=== PATIENT | female | born 1960 | race Caucasian/White ===

== ENCOUNTER 2020-03-13 15:10 | Emergency (ER) | payer OTHER, SELFPAY ==
[2020-03-13 15:33] VITALS: BP 135/76; PULSE 76; RESP 16; TEMP 36.3; O2SAT 98; BMI 28.5
[2020-03-13 17:14] VITALS: PULSE 70
--- NOTE | 2020-03-13 17:15 | PC.NURSE ---
Redness and warmth to dorsum of right hand. Light red, blanching. Movement of fingers limited by pain. + CSM distally. Has not tried po abx yet. Declined IM rocephin at [facility] r/t allergy to Amoxicillin. Pain well controlled. Denies fever / chills.
--- NOTE | 2020-03-13 18:14 | ED_ITS ---
HPI - Extremity Problem General Chief complaint: Extremity Problem,Nontraumatic Stated complaint: states right hand is infected Time Seen by Provider: 03/13/20 18:08 Source: patient Mode of arrival: Ambulatory Limitations: no limitations History of Present Illness HPI Narrative: 51-year-old female nonsmoker noncontributory medical history presents after being seen at a clinic out in the [facility] for evaluation of a possibly infected right hand. She had been wearing gloves and was working in her garden when she was poked on the dorsum of her hand with a thorn. She now has some redness limited to the dorsum of her right hand without any red streaking or systemic findings such as fever, chills nor nausea or vomiting. She is able to make a fist though it hurts. MD Complaint: extremity pain Onset (ago): day(s) Pain Consistency: constant Location: right Quality: aching Radiation: none Relieving factors: nothing Exacerbating factors: range of motion Associated symptoms: denies other symptoms Related Data Home Medications Medication Instructions Recorded Confirmed gabapentin 03/13/20 Previous Rx's Medication Instructions Recorded doxycycline hyclate 100 mg PO BID #20 tab 03/13/20 Allergies Allergy/AdvReac Type Severity Reaction Status Date / Time amoxicillin [From AUGMENTIN] Allergy Mild rash /hives Unverified 11/08/17 13:04 clavulanic acid Allergy Mild rash / Unverified 11/08/17 13:04 [From AUGMENTIN] hives Review of Systems Constitutional Constitutional: Denies chills, Denies fatigue, Denies fever(s), Denies frequent falls, Denies lethargy and Denies weakness Eyes Eyes: Denies change in vision, Denies eye discharge, Denies irritation and Denies loss of vision ENT Ears, Nose, Mouth, and Throat: Denies change in voice, Denies dizziness, Denies neck pain, Denies sore throat and Denies throat swelling Cardiovascular Cardiovascular: Denies chest pain, Denies irregular heart rhythm, Denies lightheadedness, Denies palpitations, Denies dyspnea, Denies dyspnea on exertion and Denies orthopnea Respiratory Respiratory: Denies cough, Denies dyspnea, Denies dyspnea on exertion and Denies wheezing Gastrointestinal Gastrointestinal: Denies abdominal pain, Denies change in bowel habits, Denies diarrhea, Denies nausea and Denies vomiting Musculoskeletal Musculoskeletal: Denies neck pain and Denies numbness Integumentary/Breasts Skin/Breast: Denies pruritus, Reports erythema, Denies rash, Reports skin pain, Reports skin swelling and Denies wounds Neurologic Neurologic: Denies behavioral changes, Denies confusion, Denies dizziness, Denies frequent falls, Denies loss of vision, Denies numbness and Denies weakness Psychiatric Psychiatric: Denies anxiety, Denies behavioral changes, Denies confusion, Denies depression, Denies homicidal ideation and Denies suicidal ideation Endocrine Endocrine: Denies fatigue, Denies flushing and Denies palpitations Hematologic/Lymphatic Hematologic/Lymphatic: Denies easy bruising Allergic/Immunologic Allergic/Immunologic: Denies urticaria, Denies throat swelling and Denies wheezing Patient History Surgical History Status post discectomy Family History Brother Age: 65 Cancer Mother Diabetes mellitus Social History Smoking Status: Never smoker Smoking Status: Never smoker alcohol intake frequency: a few times a week Alcohol type: beer Substance Use Type: does not use Exam Narrative Exam Narrative: GEN: AOx3 and in mild distress EYES: Pupils are equal, round, and reactive to light and accommodation. Extraoccular muscles are intact bilaterally. There is no subconjunctival hemorrhage or exudate. CHEST: Lungs are clear to auscultation bilaterally and free of wheezes, rales, or rhonchi. Heart rate is regular rhythm, there are no murmurs, clicks, rubs, or gallops. There is no chest wall tenderness. ABD: Abdomen is soft and nontender. There is no guarding or rebound. Bowel sounds are normal in all 4 quadrants. There is no mass or organomegaly. EXT: NO fluctuance on dorsum of hand. No pain with palpation of palm. No redness, or swelling of fingers. Full painless ROM of all extremities with no loss of sensation or strength. SKIN: Redness, swelling, warmth, pain on dorsum of right hand. No fluctuation or induration. Otherwise, warm, pink, and dry. No erythema or rash Initial Vital Signs Initial Vital Signs: Vital Signs Temperature 97.4 F L 03/13/20 15:33 Pulse Rate 76 03/13/20 15:33 Respiratory Rate 16 03/13/20 15:33 Blood Pressure 135/76 03/13/20 15:33 Pulse Oximetry 98 03/13/20 15:33 Course Vital Signs Vital signs: Vital Signs - 8 hr 03/13/20 18:35 Pulse Rate 71 Respiratory Rate 16 Blood Pressure 144/72 H Pulse Oximetry 98 Discharge Plan Departure Patient Disposition: Home Clinical Impression: Cellulitis of hand Discharge Date/Time: 03/13/20 18:40 Instructions: DI for Cellulitis -- Adult Activity Restrictions/Additional Instructions: *You have been diagnosed with [cellulitis on the dorsum of the right hand] *What to do: *Take medications as directed *Follow up with your primary care provider in 2-3 days, call for an appointment. Let them know you were seen in the Emergency Department and that we ask that you be seen in follow up *Return to ER if you should have any new, worsening or concerning symptoms, Prescriptions: New doxycycline hyclate 100 mg tablet 100 mg PO BID Qty: 20 RF: 0 No Action gabapentin 300 mg capsule RF: 0
[2020-03-13 18:35] VITALS: BP 144/72; PULSE 71; RESP 16; O2SAT 98
== END 2020-03-13 18:40 | disposition home or self-care (01) ==
PROVIDERS: Emergency Provider Emergency Medicine
DX: L03.113 Cellulitis of right upper limb (principal)
CPT/HCPCS: 99281